=== PATIENT | female | born 1955 | race Caucasian/White ===

== ENCOUNTER 2017-03-28 03:25 | Emergency (ER) | payer BC ==
[2017-03-28] MEDS ORDERED: Aspirin Low Dose CHEW TAB* 81 MG PO ONE (03:52)
[2017-03-28 04:03] LABS: Hematocrit 39 % (35-47); Mean Corpuscular HGB Conc 34 g/dl (31-36); Mean Corpuscular Hemoglobin 30 pg (27-31); Mean Corpuscular Volume 89 fL (80-97); Mean Platelet Volume 8 um3 (7.4-10.4); Red Blood Count 4.34 10^6/ul (4.0-5.4); Red Cell Distribution Width 13 % (10.5-15); White Blood Count 6.8 10^3/ul (3.5-10.8)
[2017-03-28 04:19] LABS: Albumin 3.9 g/dL (3.2-5.2); BUN/Creatinine Ratio 26.7 (8-20); Calcium 8.6 mg/dL (8.6-10.3); EGFR African American 85.4 (>60); EGFR Non-African American 66.4 (>60); Globulin 2.6 g/dL (2-4); Magnesium 2.1 mg/dL (1.9-2.7); Total Bilirubin 0.3 mg/dL (0.2-1.0); Total Protein 6.5 g/dL (6.4-8.9)
[2017-03-28 04:23] LABS: Potassium 3.3 mmol/L (3.5-5.0)
--- NOTE | 2017-03-28 04:56 | ED ---
Nico Tracy Alfonso, scribed for Asif Corbett MD on 03/28/17 at 0355 . HPI Chest Pain - HPI Summary HPI Summary: This patient is a 62 year old F presenting to [facility] accompanied by with a chief complaint of left-sided CP since waking up at 0230 this morning. Pt rates the pain 2/10 in severity. Symptoms aggravated and alleviated by position. She took ASA 325 mg [employer]. 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 PMHx of HTN, and HLD. - History of Current Complaint Chief Complaint: EDChestPainROMI Time Seen by Provider: 03/28/17 03:48 Hx Obtained From: Patient Onset/Duration: Started Minutes Ago - 0230 this morning, Still Present Timing: Constant Initial Severity: Mild Current Severity: Mild Pain Intensity: 2 Pain Scale Used: 0-10 Numeric Chest Pain Location: Discrete at: - Left-sided Aggravating Factor(s): Position Alleviating Factor(s): Position Associated Signs and Symptoms: Positive: Negative - Allergy/Home Medications Allergies/Adverse Reactions: Allergies Allergy/AdvReac Type Severity Reaction Status Date / Time No Known Allergies Allergy Verified 03/28/17 04:02 Home Medications: Home Medications Metoprolol Succinate XL TAB* 50 mg PO DAILY 03/28/17 [History Confirmed 03/28/17 ] Rosuvastatin Calcium [Crestor] 2.5 mg PO SEE INSTRUCTIONS 03/28/17 [History Confirmed 03/28/17] Valsartan/HCTZ 160/25(NF) 0.5 tab PO DAILY 03/28/17 [History Confirmed 03/28/17] PMH/Surg Hx/FS Hx/Imm Hx Endocrine/Hematology History: Denies: Hx Diabetes, Hx Thyroid Disease Cardiovascular History: Reports: Hx Hypercholesterolemia, Hx Hypertension - takes meds Denies: Hx Angina, Hx Coronary Artery Disease, Hx Myocardial Infarction, Hx Valvular Heart Disease Respiratory History: Denies: Hx Asthma, Hx Chronic Obstructive Pulmonary Disease (COPD) GI History: Denies: Hx Ulcer - Surgical History Surgery Procedure, Year, and Place: Appendectomy, tonsillectomy, hysterectomy. Infectious Disease History: Denies: Hx Clostridium Difficile, Hx Hepatitis, Hx Human Immunodeficiency Virus (HIV), Hx of Known/Suspected MRSA, Hx Shingles, Hx Tuberculosis, Traveled Outside the [place] in Last 30 Days - Family History Known Family History: Positive: Cardiac Disease - Parents and siblings - Social History Alcohol Use: Occasionally Substance Use Type: Reports: None Smoking Status (MU): Never Smoked Tobacco Review of Systems Negative: Fever Positive: Chest Pain - Left-sided All Other Systems Reviewed And Are Negative: Yes Physical Exam Triage Information Reviewed: Yes Vital Signs Reviewed: Yes Appearance: Positive: No Pain Distress, Thin Skin: Positive: Warm Head/Face: Positive: Normal Head/Face Inspection Eyes: Positive: BEHZAD ENT: Positive: Hearing grossly normal Neck: Positive: Supple Respiratory/Lung Sounds: Positive: Breath Sounds Present Cardiovascular: Positive: RRR Abdomen Description: Positive: Nontender, Soft Bowel Sounds: Positive: Present Musculoskeletal: Positive: Strength/ROM Intact Neurological: Positive: Alert, Oriented to Person Place, Time Psychiatric: Positive: Affect/Mood Appropriate Diagnostics - Laboratory Result Diagrams: 03/28/17 03:41 03/28/17 03:41 Lab Statement: Any lab studies that have been ordered have been reviewed, and results considered in the medical decision making process. - Radiology CXR Radiology Interpretation Completed By: ED Physician - NAD - EKG 0333 Cardiac Rate: NL - BPM 64 EKG Rhythm: Sinus Rhythm Chest Pain Course/Dx - Course Assessment/Plan: 62 year old F presenting to [facility] accompanied by with a chief complaint of left-sided CP since waking up at 0230 this morning. She took ASA 325 mg [employer]. 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 PMHx of CAD, HTN, and HLD. CXR reveals NAC. An EKG reveals NSR. Pt is signed out to Dr. Nicole, pending disposition, awaiting second troponin. Discharge - Discharge Plan Condition: Stable Disposition: OTHER Discharge Disposition Comment: Pt signed out to Dr. Nicole, pending disposition , awaiting second troponin. Referrals: Vikki Lau MD [Primary Care Provider] - The documentation as recorded by the Nico paniagua Alfonso accurately reflects the service I personally performed and the decisions made by me, Asif Corbett MD.
[2017-03-28] MEDS ORDERED: Morphine INJ* 2 MG/ML 1 ML SYRINGE IV ONE (05:20)
[2017-03-28 06:55] VITALS: BP 126/76
--- NOTE | 2017-03-28 08:35 | RAD ---
Indication: Chest pain. 2 views of the chest including dual energy PA views demonstrates no mediastinal shift. Heart is of normal size and configuration. Lung joaquin are clear. IMPRESSION: No active cardiopulmonary disease is noted.
== END 2017-03-28 08:07 ==
LOC: ED 03:25
DX: R07.9 Chest pain, unspecified (principal)
CPT/HCPCS: 36415; 71020; 80053; 83605; 83735; 84484; 85025; 85379; 93005; 99284; J2270